=== PATIENT | female | born 1950 | race Caucasian/White ===

== ENCOUNTER → 2018-01-19 | Day surgery (SDC) | payer MEDICARE ==
--- NOTE | 2018-01-16 13:03 | Diagnostic Imaging Report ---
PROCEDURE: Frontal and lateral views of the chest. COMPARISON: Chest x-ray 11/20/2016. INDICATIONS: PRE OPERATIVE CHEST X-RAY FOR FOOT SURGERY FINDINGS: Lines/tubes: None. Lungs: The lungs are well inflated and clear. There is no evidence of pneumonia or pulmonary edema. Pleura: There is no pleural effusion or pneumothorax. Heart and mediastinum: The heart and the mediastinum are normal. Bones: No acute bony abnormality. Right upper quadrant cholecystectomy clips. IMPRESSION: No acute cardiopulmonary disease. Dictated by: Derrell Falcon M.D. on 01/16/2018 at 13:02 Electronically approved by: Derrell Falcon M.D. on 01/16/2018 at 13:02
[~2018-01-19] MED LIST: BUPIVACAINE HCL 0.5% 10ML MPF VIAL INJ ONE; CALCIUM + D PO; CEFAZOLIN SOD 2 GM/D5W 50ML 50 ML IV ONE; DEXAMETHASONE SOD PHOS INJ 4 MG/ML VIAL ONE; FENTANYL CITRATE/PF 100MCG/2 ML INJ ONE; GABAPENTIN300 MG PO; LIDOCAINE HCL 2% LOCAL INJ 5 ML SDV VIAL INJ ONE; MIDAZOLAM HCL 2 MG/2 ML VIAL ONE; NEOSTIGMINE 1 MG/ML 10ML VIAL ONE; NEXIUM40 MG PO; ONDANSETRON HCL INJ 2 MG/ML VIAL ONE; PROPOFOL IV EMULSION 10 MG/ML 20 ML VIAL ONE; SEVOFLURANE INHAL SOLN 250 ML PEN BTL ONE; VIT C PO; XYZAL5 MG PO
--- OUTSIDE RECORDS SUMMARY | 2018-01-19 05:46 | XMS REPORT ---
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 Allergies, Adverse Reactions, Alerts This patient has no known allergies or adverse reactions. Medications This patient has no known medications. Results Test Description Test Time Test Comments Text Results Atomic Results Result Comments CHEST 2 VIEWS [place] [address] Patient Name: LEANNE KEENAN MR #: [id number] : 1950 Age/Sex: 67/F Req #: [id number] Adm Physician: Ordered by: ELIZABETH COTTO DPM Report # : [id number] Location: OR Room/Bed: Procedure: [id number] DX/CHEST 2 VIEWS Exam Date: 01/16/18 Exam Time : 1240 REPORT STATUS: Signed PROCEDURE: Frontal and lateral views of the chest. COMPARISON: Chest x-ray 11/20/2016. INDICATIONS: PRE OPERATIVE CHEST X-RAY FOR FOOT SURGERY FINDINGS: Lines/tubes: None. Lungs: The lungs are well inflated and clear. There is no evidence of pneumonia or pulmonary edema. Pleura: There is no pleural effusion or pneumothorax. Heart and mediastinum: The heart and the mediastinum are normal. Bones: No acute bony abnormality. Right upper quadrant cholecystectomy clips. IMPRESSION: No acute cardiopulmonary disease. Dictated by: Alex Falcon M.D. on 01/16/2018 at 13:02 Electronically approved by: Alex Falcon M.D. on 01/16/2018 at 13:02 Dictated By: ALEX FALCON MD 1302 Transcribed By: MARITZA on 01/16/18 1302 COPY TO: ELIZABETH COTTO DPM
--- NOTE | 2018-01-29 18:45 | Operative Report ---
DATE OF PROCEDURE: January 19, 2018 PREOPERATIVE DIAGNOSES 1. Cystic lesion, dorsal aspect of the left foot, bony ossicle, dorsal aspect of the left foot. 2. Nerve entrapment, dorsal aspect of the left foot. 3. 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 4. Plantar flexed 2nd metatarsal, left foot. POSTOPERATIVE DIAGNOSES 1. Cystic lesion, dorsal aspect of the left foot, bony ossicle, dorsal aspect of the left foot. 2. Nerve entrapment, dorsal aspect of the left foot. 3. 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 4. Plantar flexed 2nd metatarsal, left foot. TITLE OF OPERATION: 1. Excision ganglion cyst, dorsal aspect of the left foot. 2. Excision accessory ossicle, dorsal aspect of the left foot. 3. Neurolysis, dorsal aspect of the left foot. 4. Arthrodesis 2nd digit, left foot. 5. Elevating osteotomy, dorsal aspect 2nd metatarsal, left foot. ANESTHESIA: General endotracheal. HEMOSTASIS: Is a left thigh tourniquet 350 mmHg to create hemostasis. PROCEDURE IN DETAIL: The patient was taken to the operating room in a mildly state and placed upon the operating table in the supine position. Following induction of a general anesthetic, the left lower extremity was elevated to 60 degrees to exsanguinate before inflating pneumatic thigh tourniquet to 350 mmHg to create hemostasis. Left lower extremity was placed upon the operating table prior for the following procedure. 1 Procedure #1: The excision of ganglion cyst dorsal aspect of the left foot. An approximate 4 cm dorsal linear incision was made across the dorsal medial aspect of the cuneiform region of the left foot. Incision was deepened via sharp and blunt dissection down to the dorsal cystic lesion. The cyst was identified and circumscribed from all surrounding and restricting tissues. The cyst was removed in its multilobulated fashion without any puncturing. It was traced to the central stalk in the central aspect of the cuneiform which was then cauterized. The area was then irrigated with copious amounts of sterile saline solution and an irrigation was performed. Then 3-0 Vicryl was used to close over a TLS drain, 4-0 Vicryl for the skin. The dorsal deep peroneal nerve was identified and neurolysis performed freeing it from all surrounding and constricting tissues at the same time. The 2nd digit was then treated with arthrodesis. Linear incision was placed overlying the 2nd digit, proximal interphalangeal joint. Cup and cone reamer was used to create arthrodesis. Then 0.045 K-wire and intraosseous bone pin were used. This fully stabilized the 2nd digit. Elevating osteotomy was then performed with a 2nd incision in that area overlying the 2nd metatarsal. A Sharad osteotomy was performed and popoff screws were used to stabilize. This was then irrigated with copious amounts of sterile saline solution. The bone itself was further remodeled, irrigated and closed with 3-0 Vicryl, 4-0 Vicryl and 4-0 nylon. The areas of surgery were all then blocked with 0.5 Marcaine and Decadron [place] releasing the pneumatic thigh tourniquet that showed a normal hyperemic flush to all digits of the left foot. The patient left the operating room with vital signs stable and in apparent satisfactory condition, having tolerated both anesthetic and procedure very well. Job#: [id number]
== END | disposition home or self-care (01) ==
LOC: OR 05:43
PROVIDERS: ATTEND Podiatrist Foot Surgery
DX: M67.472 Ganglion, left ankle and foot (principal); G58.8 Other specified mononeuropathies; M20.42 Other hammer toe(s) (acquired), left foot; M21.272 Flexion deformity, left ankle and toes; G57.32 Lesion of lateral popliteal nerve, left lower limb; M19.90 Unspecified osteoarthritis, unspecified site; K21.9 Gastro-esophageal reflux disease without esophagitis; R00.1 Bradycardia, unspecified; Z01.810 Encounter for preprocedural cardiovascular examination; Z01.818 Encounter for other preprocedural examination
CPT/HCPCS: 28090; 28285; 28308; 64704; 71046; 88304; 88311; 93005; J1100; J2001; J2250; J2405; J2710; 76001; 88302; 88307

== ENCOUNTER → 2018-06-28 | Day surgery (SDC) | payer MEDICARE ==
[2018-06-26 12:18] LABS: BASOPHILS # (AUTO) 0.1 (0.0-0.1); EOSINOPHILS # (AUTO) 0.1 (0.0-0.4); EOSINOPHILS % 2.4 % (0.0-6.0); HEMATOCRIT 34.2 % (34.2-44.1); LYMPHOCYTES # (AUTO) 2.1 (1.0-3.2); LYMPHOCYTES % 36.2 % (18.0-39.1); MEAN CORPUSCULAR HEMOGLOBIN 29.6 pg (28-32); MEAN CORPUSCULAR HGB CONC 32.2 g/dL (31-35); MEAN CORPUSCULAR VOLUME 91.9 fL (81-99); MONOCYTES # (AUTO) 0.5 (0.2-0.8); NEUTROPHILS % 51.1 % (38.7-80.0); PLATELET COUNT 248 x10e3/uL (140-360); RED BLOOD COUNT 3.72 x10e6/uL (3.6-5.1); RED CELL DISTRIBUTION WIDTH 13.8 % (11.7-14.4)
[2018-06-26 12:34] LABS: ANION GAP 10.7 mmol/L (8-16); BLOOD UREA NITROGEN 11 mg/dL (7-26); BUN/CREATININE RATIO 16 (6-25); CALCIUM 9.2 mg/dL (8.4-10.2); CARBON DIOXIDE 28 mmol/L (22-29); CHLORIDE 106 mmol/L (98-107); CREATININE, SERUM 0.67 mg/dL (0.57-1.11); EST GLOMERULAR FILTRATION RATE > 60 ML/MIN (60-); GLUCOSE 92 mg/dL (74-118); POTASSIUM 3.7 mmol/L (3.5-5.1); SODIUM 141 mmol/L (136-145)
--- NOTE | 2018-06-26 12:58 | Diagnostic Imaging Report ---
PROCEDURE: X-RAY CHEST, TWO VIEWS COMPARISON: 01/16/2018. INDICATIONS: PREOPERATIVE CHEST XRAY FOR FOOT SURGERY FINDINGS: LUNGS: No consolidations or edema. PLEURA: No effusions or pneumothorax. HEART \T\ MEDIASTINUM: The heart is within normal size-limits. BONES \T\ SOFT TISSUES: No acute findings. Cholecystectomy clips. CONCLUSION: No acute cardiopulmonary abnormality. Dictated by: Eldon Wick M.D. on 06/26/2018 at 13:03 Electronically approved by: Eldon Wick M.D. on 06/26/2018 at 13:03
[~2018-06-28] MED LIST changes: -BUPIVACAINE HCL 0.5% 10ML MPF VIAL INJ ONE; +BUPIVACAINE HCL 0.5% INJ 30 ML VIAL INJ ONE; +EPHEDRINE SULFATE INJ 50 MG/10 ML SYR ONE; +KETOROLAC TROMETHAMINE 30 MG/ML VIAL ONE; +MULTI-VITAMIN1 EACH PO
--- NOTE | 2018-06-28 14:04 | Operative Report ---
DATE OF PROCEDURE: June 28, 2018 PREOPERATIVE DIAGNOSES: 1. Rigidly contracted subluxed 2nd digit right foot. 2. Plantarflexed 2nd metatarsal right foot. 3. Ganglion cyst right foot. 4. Deep peroneal nerve entrapment right foot. POSTOPERATIVE DIAGNOSES: 1. Rigidly contracted subluxed 2nd digit right foot. 2. Plantarflexed 2nd metatarsal right foot. 3. Ganglion cyst right foot. 4. Deep peroneal nerve entrapment right foot. TITLE OF OPERATION: 1. Arthrodesis 2nd digit right foot. 2. Elevating osteotomy Sharad procedure 2nd metatarsal right foot. 3. Excision ganglion cyst dorsal aspect right foot. 4. Deep peroneal nerve neurolysis dorsal aspect right foot. ANESTHESIA: General endotracheal. HEMOSTASIS: A right thigh tourniquet at 350 mmHg. PROCEDURE IN DETAIL: The patient was taken to the operating room a mildly sedated state and placed upon the operating table in the supine position. Following induction of general anesthetic, the right lower extremity was elevated to 60 degrees to exsanguinate before inflating the pneumatic thigh tourniquet to 350 mmHg to create hemostasis. The right lower extremity was placed upon the operating table prior to performing the following procedure. Procedure number 1 is arthrodesis 2nd digit right foot. A linear longitudinal incision was made overlying the dorsal aspect of the 2nd metatarsophalangeal joint, proximal interphalangeal joint of the right foot. The incision was deepened via sharp and blunt dissection down to the level of the dorsal capsular structure. Care was taken to identify and retract all vital structures encountered. A transverse tenotomy was performed, and the head of the proximal phalanx was delivered into the surgical site. A cup and cone reamer was used to remove the head of the 2nd digit proximal phalanx as well as the base of the intermediate phalanx which had previously been severely contracted with a hammertoe as well as subluxed and dislocated as 2nd digit overlapping the arthritic hallux. The digital implant device, a 2-step implant from [employer], was inserted and, utilizing standard technique with a cannulated system over a K-wire, the pin was tapped into its appropriate position and the digit was noted to be adequately fused. The area was then irrigated and the tendon cut to its appropriate length and repaired. The attention was then directed to the 2nd metatarsophalangeal joint for a Sharad osteotomy. A 2nd linear longitudinal incision was made overlying the metatarsophalangeal joint. The head of the 2nd metatarsal was delivered into the surgical site and all contracted soft tissue debrided from the top. There were contractures along the medial border of the joint which were forcing the 2nd digit to overlap the hallux. These were released and capsule tendon balancing procedures performed. This having been accomplished, the head of the 2nd metatarsal was inspected and noted to be free of any significant arthritis. Although there was a little, the joint was felt to be primarily intact. The head having thus been delivered into the surgical site, a [id number] osteotomy was made from distal to proximal, distal dorsal to proximal plantar, which allowed for a proximal shift as well as a dorsiflexory shift of the head of the more proximal segment, which was then impacted and stabilized with 2 [employer] popoff screws 12 mm in length. These having been appropriately positioned and popped off, were creating good compression. The area was then irrigated and deep closure was 3-0 Vicryl, subcutaneous closure was 4-0 Vicryl and 4-0 nylon. The patient had tolerated the above procedure well. Attention was then directed to the dorsal aspect of the foot where a large ganglion cyst was noted. Dorsolaterally an approximate 4 cm linear incision was placed and dissection carried down deep to the tissues overlying the lateral tarsus where a large cyst was identified and transected sharply. This having been accomplished, the underlying bone was rasped smooth and cauterized to prevent recurrence. Deep closure was 3-0 Vicryl, subcutaneous closure was 4-0 Vicryl and skin closure was 4-0 nylon. The cyst was sent to pathology for further identification. Attention was then directed to the area along and parallel to the extensor hallucis longus tendon where an entrapment of the deep peroneal nerve was noted. This had a positive Tinel sign preoperatively. The incision was carried deep to the tendon, and the deep peroneal nerve was noted to cross just proximal to the flexor hallucis brevis tendon course. The deep peroneal nerve was identified and released from all surrounding and constricting materials. The tendon was retracted from the dorsum of the foot and noted to facilitate decompression, and the decompression was thus accomplished utilizing a combination of sharp and blunt dissection. The nerve was noted to be free of any adhesions and irrigated with copious amounts of sterile saline solution. Microscopic evaluation was performed at this point, and the nerve was noted to be intact. All deep closure was performed with 3-0 Vicryl, 4-0 Vicryl and 4-0 nylon. The areas of surgery were all blocked then with 0.5 Marcaine, Decadron [place]. A release of the pneumatic thigh tourniquet showed a normal hyperemic flush to all digits of the right foot. Appropriate mildly compressive dressings were in place, and the patient I had recommended to remain completely nonweightbearing until she sees me in the office and then we will reevaluate. At this point, however, minimal weightbearing only to be tolerated on the heel. The patient left the operating room with vital signs stable and in apparent satisfactory condition, having tolerated both the anesthetic and procedure very well. Job#: [id number] HERMES
== END | disposition home or self-care (01) ==
LOC: OR 07:23
PROVIDERS: ATTEND Podiatrist Foot Surgery
DX: M20.41 Other hammer toe(s) (acquired), right foot (principal); M21.271 Flexion deformity, right ankle and toes; M67.471 Ganglion, right ankle and foot; S93.114A Dislocation of interphalangeal joint of right lesser toe(s), initial encounter; G57.31 Lesion of lateral popliteal nerve, right lower limb; M19.90 Unspecified osteoarthritis, unspecified site; K21.9 Gastro-esophageal reflux disease without esophagitis; R00.1 Bradycardia, unspecified; Z88.8 Allergy status to other drugs, medicaments and biological substances; X58.XXXA Exposure to other specified factors, initial encounter; Z01.810 Encounter for preprocedural cardiovascular examination; Z01.812 Encounter for preprocedural laboratory examination; Z01.818 Encounter for other preprocedural examination
CPT/HCPCS: 28090; 28285; 28308; 36415; 64704; 71046; 80048; 85025; 88304; 93005; C1713; J1100; J1885; J2001; J2250; J2405; J2710; 76001; 88302; 88311